=== PATIENT | male | born 1980 | race Caucasian/White ===

== ENCOUNTER 2020-12-26 21:40 | Emergency (ER) | payer MEDICAID ==
[~2020-12-26] VITALS: Ht 182.9 cm; Wt 63.6 kg
[2020-12-26 21:47] VITALS: Ht 182.9 cm; Wt 63.6 kg
[2020-12-26] MEDS ORDERED: NEURONTIN 400400 MG PO (21:49)
[2020-12-26] MEDS ORDERED: FLOMAX0.4 MG PO (21:49)
[2020-12-26 22:11] LABS: BASOPHILS 1.4 % (0-2); EOSINOPHILS 2.8 % (0-7); HEMATOCRIT 38.5 % (42.0-54.0); HEMOGLOBIN 12.2 g/dL (13.5-17.5); LYMPHOCYTES 18.4 % (15-50); MCH 30.2 pg (26.0-34.0); MCHC 31.7 g/dL (31.0-37.0); MCV 95.1 fL (80.0-100.0); MEAN PLATELET VOLUME 8.5 fL (7.4-10.4); MONOCYTES 7.8 % (2-11); NEUTROPHILS 69.6 % (40-80); PLATELET COUNT 467 10x3/uL (130-400); RBC 4.05 10x6/uL (4.20-6.10); RDW 25.5 % (11.5-14.5); WBC 20.7 10x3/uL (4.8-10.8)
[2020-12-26 22:15] LABS: ANION GAP 18.8 mmol/L (8-16); CALCIUM 8.6 mg/dL (8.5-10.1); CARBON DIOXIDE 19.9 mmol/L (21.0-32.0); CREATININE - SERUM 2.7 mg/dL (0.6-1.3); POTASSIUM - SERUM 4.7 mmol/L (3.5-5.1)
[2020-12-26 22:21] LABS: ALBUMIN 3.5 g/dL (3.4-5.0); BILIRUBIN - TOTAL 0.14 mg/dL (0.2-1.3); PROTEIN - SERUM 7.4 g/dL (6.4-8.2)
[2020-12-26 22:55] LABS: BILIRUBIN NEGATIVE (NEGATIVE); KETONE NEGATIVE (NEGATIVE); NITRITE NEGATIVE (NEGATIVE); UROBILINOGEN NORMAL mg/dL (< 2)
[2020-12-27 00:16] VITALS: BP 148/95
== END 2020-12-27 00:16 | disposition home or self-care (01) ==
LOC: D.ER 21:40
PROVIDERS: Student in an Organized Health Care Education/Training Program
DX: N20.1 Calculus of ureter (principal); N17.9 Acute kidney failure, unspecified; R10.9 Unspecified abdominal pain

== ENCOUNTER 2020-12-27 15:36 | Emergency (ER) | payer MEDICAID ==
[~2020-12-27] VITALS: Ht 182.9 cm; Wt 59.1 kg
[~2020-12-27 15:36] MED LIST: FLOMAX0.4 MG PO; NEURONTIN 400400 MG PO
[2020-12-27 15:48] VITALS: BP 151/76; Ht 182.9 cm; Wt 59.1 kg
[2020-12-27 16:46] LABS: BILIRUBIN NEGATIVE (NEGATIVE); KETONE NEGATIVE (NEGATIVE); NITRITE NEGATIVE (NEGATIVE); UROBILINOGEN NORMAL mg/dL (< 2)
[2020-12-27 16:47] LABS: BASOPHILS 1.1 % (0-2); EOSINOPHILS 4.4 % (0-7); HEMATOCRIT 36.8 % (42.0-54.0); HEMOGLOBIN 11.5 g/dL (13.5-17.5); LYMPHOCYTES 15.7 % (15-50); MCH 29.6 pg (26.0-34.0); MCHC 31.4 g/dL (31.0-37.0); MCV 94.4 fL (80.0-100.0); MEAN PLATELET VOLUME 8.6 fL (7.4-10.4); MONOCYTES 8.6 % (2-11); NEUTROPHILS 70.2 % (40-80); PLATELET COUNT 466 10x3/uL (130-400); RDW 24.6 % (11.5-14.5)
[2020-12-27 16:53] LABS: WBC 12.7 10x3/uL (4.8-10.8)
[2020-12-27 17:01] LABS: ANION GAP 17.9 mmol/L (8-16); CALCIUM 8.3 mg/dL (8.5-10.1); CREATININE - SERUM 2.5 mg/dL (0.6-1.3); POTASSIUM - SERUM 4.9 mmol/L (3.5-5.1)
[2020-12-27 17:05] LABS: ALBUMIN 3.3 g/dL (3.4-5.0); BILIRUBIN - TOTAL 0.1 mg/dL (0.2-1.3); PROTEIN - SERUM 6.9 g/dL (6.4-8.2)
== END 2020-12-27 17:56 | disposition left against medical advice (07) ==
LOC: D.ER 15:36
PROVIDERS: Family Medicine
DX: N13.2 Hydronephrosis with renal and ureteral calculous obstruction (principal); Z53.29 Procedure and treatment not carried out because of patient's decision for other reasons; R10.9 Unspecified abdominal pain; D72.829 Elevated white blood cell count, unspecified